=== PATIENT | female | born 1955 | race Two or more races ===

== ENCOUNTER 2018-05-20 08:45 | Day surgery (SDC) | payer MEDICAID ==
[~2018-05-20] VITALS: Ht 162.6 cm; Wt 77.6 kg
[2018-05-20] VITALS (13 sets, daily range): BP systolic 98–141; BP diastolic 52–71
[2018-05-20] MEDS ORDERED: normal saline 1000ml 1,000 ML IV PRN (09:10)
[2018-05-20 09:55] LABS: BASOPHILS % (AUTO) 0.9 % (0-1); EOSINOPHILS # (AUTO) 0.5 X10'3 (0-0.9); EOSINOPHILS % (AUTO) 17.6 % (0-6); HEMATOCRIT 42.4 % (35.0-45.0); HEMOGLOBIN 14.6 g/dl (12.0-16.0); LYMPHOCYTES % (AUTO) 33.6 % (21-51); MEAN CORPUSCULAR HEMOGLOBIN 30.5 PG (27.0-31.0); MEAN CORPUSCULAR HGB CONC 34.4 % (33.0-36.5); MEAN CORPUSCULAR VOLUME 88.8 FL (78-98); MEAN PLATELET VOLUME 9.2 FL (7.4-10.4); MONOCYTES # (AUTO) 0.2 X10'3 (0-0.9); MONOCYTES % (AUTO) 7.3 % (2-12); NEUTROPHILS # (AUTO) 1.2 X10'3 (1.8-7.7); NEUTROPHILS % (AUTO) 40.6 % (42-75); PLATELET COUNT 86 X10'3 (140-440); RED BLOOD COUNT 4.77 X10'6 (4.20-5.60); RED CELL DISTRIBUTION WIDTH 13.8 % (11.5-14.5); WHITE BLOOD COUNT 2.9 X10'3 (4.5-11.0)
[2018-05-20 10:03] LABS: INR 1.2 INR; PROTHROMBIN TIME 12.7 SECONDS (9.0-12.0)
[2018-05-20] MEDS ORDERED: midazolam 2 mg/2 ml injection IV ONE (10:05)
[2018-05-20] MEDS ORDERED: fentaNYL/PF 50MCG/1 ML 2ML syringe IV ONE (10:05)
[2018-05-20 10:12] LABS: ALANINE AMINOTRANSFERASE 67 U/L (12-78); ALBUMIN 3.6 G/DL (3.4-5.0); ALBUMIN/GLOBULIN RATIO 0.7 (1.1-1.5); ALKALINE PHOSPHATASE 212 IU/L (46-116); ANION GAP 11 (8-16); ASPARTATE AMINO TRANSFERASE 71 U/L (10-37); BLOOD UREA NITROGEN 10 MG/DL (7-18); BUN/CREATININE RATIO 16.4 (6.6-38.0); CALCIUM 9.1 MG/DL (8.5-10.1); CHLORIDE 107 MMOL/L (99-107); CREATININE 0.61 MG/DL (0.40-0.90); GLUCOSE 102 MG/DL (70-104); POTASSIUM 3.8 MMOL/L (3.5-5.1); SODIUM 142 MMOL/L (135-145); TOTAL CARBON DIOXIDE 24.5 MMOL/L (24-32); TOTAL PROTEIN 8.9 G/DL (6.4-8.2); eGFR > 90 ML/MIN
[2018-05-20 10:25] LABS: TOTAL CELLS COUNTED 100
[2018-05-20 10:26] LABS: PLATELET ESTIMATE DECREASED
[2018-05-20] MEDS ORDERED: ASPI-1265 PO (10:28)
[2018-05-20] MEDS ORDERED: IPRA3AMP IH (10:28)
[2018-05-20] MEDS ORDERED: ADV50100 IH (10:28)
[2018-05-20] MEDS ORDERED: ALBU18HF2 INH (10:28)
[2018-05-20] MEDS ORDERED: LEVO25TA2 PO (10:28)
[2018-05-20] MEDS ORDERED: normal saline 1000ml 1,000 ML IV SCH (12:16)
== END 2018-05-20 14:15 | disposition home or self-care (01) ==
LOC: SSTAY O 08:45
PROVIDERS: ATTEND Radiology Diagnostic Radiology
DX: K74.69 Other cirrhosis of liver (principal); K76.0 Fatty (change of) liver, not elsewhere classified; J44.9 Chronic obstructive pulmonary disease, unspecified; E03.9 Hypothyroidism, unspecified; K21.9 Gastro-esophageal reflux disease without esophagitis; Z79.2 Long term (current) use of antibiotics; Z79.82 Long term (current) use of aspirin; Z79.899 Other long term (current) drug therapy; Z88.8 Allergy status to other drugs, medicaments and biological substances
CPT/HCPCS: 36415; 47000; 76942; 80053; 85025; 85610; J2250; J3010; J7030; A4620

== ENCOUNTER 2018-09-11 09:00 | Day surgery (SDC) | payer MEDICAID ==
[~2018-09-11] VITALS: Ht 162.6 cm; Wt 158.0 kg
[~2018-09-11 09:00] MED LIST: ADV50100 IH; ALBU18HF2 INH; ASPI-1265 PO; IPRA3AMP31 IH; LEVO25TA2 PO
[2018-09-11] MEDS ORDERED: ASCO-407 (10:14)
[2018-09-11] MEDS ORDERED: MIDAZolam 5mg/5ml vial ONE ×2 (10:23)
[2018-09-11] MEDS ORDERED: LIDOcaine Viscous 15ml cup ONE (10:23)
[2018-09-11] MEDS ORDERED: fentaNYL/PF 50MCG/1 ML 2ML syringe ONE (10:23)
[2018-09-11 10:35] VITALS: BP 127/72
[2018-09-11 12:01] VITALS: BP 148/78
[2018-09-11 12:11] VITALS: BP 132/72
[2018-09-11 12:21] VITALS: BP 134/73
[2018-09-11 12:31] VITALS: BP 136/63
== END 2018-09-11 12:40 | disposition home or self-care (01) ==
LOC: GI LAB 09:00
PROVIDERS: ATTEND Internal Medicine Gastroenterology
DX: Z12.11 Encounter for screening for malignant neoplasm of colon (principal); I85.00 Esophageal varices without bleeding; K76.6 Portal hypertension; K31.89 Other diseases of stomach and duodenum; J45.998 Other asthma; K21.9 Gastro-esophageal reflux disease without esophagitis; Z86.2 Personal history of diseases of the blood and blood-forming organs and certain disorders involving the immune mechanism; Z79.899 Other long term (current) drug therapy; Z88.8 Allergy status to other drugs, medicaments and biological substances
CPT/HCPCS: 43244; 45378; 99152; 99153; J2250; J3010; J7030; 43450; A4620

== ENCOUNTER 2023-04-27 06:54 | Day surgery (SDC) | payer MEDICARE, MEDICAID ==
[2023-04-27] VITALS (11 sets, daily range): BP systolic 93–114; BP diastolic 55–76
[~2023-04-27] VITALS: Ht 162.6 cm; Wt 70.1 kg
[~2023-04-27 06:54] MED LIST changes: -ADV50100 IH; -ASPI-1265 PO; -IPRA3AMP31 IH; -LEVO25TA2 PO
[2023-04-27] MEDS ORDERED: normal saline 1000ml 1,000 ML IV PRN (07:20)
[2023-04-27] MEDS ORDERED: albumin 25% 100mL bottle x 1 IV PRN (07:20)
[2023-04-27] MEDS ORDERED: LIDOcaine 1%/PF 5ML 10 MG/ML VIAL SQ ONE (07:30)
[2023-04-27] MEDS ORDERED: FURO40TA4 PO (07:31)
[2023-04-27] MEDS ORDERED: SPIR100T5 PO (07:31)
== END 2023-04-27 11:15 | disposition home or self-care (01) ==
LOC: SSTAY O 06:54
PROVIDERS: ATTEND Radiology Vascular & Interventional Radiology
DX: R18.8 Other ascites (principal); R14.0 Abdominal distension (gaseous); K74.69 Other cirrhosis of liver; J44.9 Chronic obstructive pulmonary disease, unspecified; E03.9 Hypothyroidism, unspecified; Z88.1 Allergy status to other antibiotic agents; Z88.8 Allergy status to other drugs, medicaments and biological substances; Z79.899 Other long term (current) drug therapy
CPT/HCPCS: 49083; J3490; P9047; A6258; A6449

== ENCOUNTER 2023-07-10 06:42 | Day surgery (SDC) | payer MEDICARE, MEDICAID ==
[2023-07-10] VITALS (11 sets, daily range): BP systolic 93–116; BP diastolic 53–71; PULSE 63–68; RESP 16–18; TEMP 97.9; O2SAT 98–100
[~2023-07-10] VITALS: Ht 162.6 cm; Wt 68.5 kg
[~2023-07-10 06:42] MED LIST changes: -ALBU18HF2 INH; +FURO40TA4 PO; +SPIR100T5 PO
[2023-07-10] MEDS ORDERED: SPIR50TA5 PO (07:11)
[2023-07-10] MEDS ORDERED: normal saline 1000ml 1,000 ML IV PRN (07:20)
[2023-07-10] MEDS: albumin 25% 100mL bottle x 1 IV PRN ×2 (08:42→09:18)
== END 2023-07-10 10:30 | disposition home or self-care (01) ==
LOC: SSTAY O 06:42
PROVIDERS: ATTEND Radiology Vascular & Interventional Radiology
DX: R18.8 Other ascites (principal); R14.0 Abdominal distension (gaseous); J44.9 Chronic obstructive pulmonary disease, unspecified; E03.9 Hypothyroidism, unspecified; K74.69 Other cirrhosis of liver; Z88.1 Allergy status to other antibiotic agents; Z88.8 Allergy status to other drugs, medicaments and biological substances; Z79.899 Other long term (current) drug therapy
CPT/HCPCS: 49083; C1729; J3490; P9047; A6258

== ENCOUNTER 2023-07-27 07:32 | Day surgery (SDC) | payer MEDICARE, MEDICAID ==
[~2023-07-27] VITALS: Ht 162.6 cm; Wt 70.0 kg
[2023-07-27] VITALS (9 sets, daily range): BP systolic 88–124; BP diastolic 47–70; PULSE 57–67; RESP 14–16; TEMP 97.4; O2SAT 97–100
[~2023-07-27 07:32] MED LIST changes: -SPIR100T5 PO; +SPIR50TA5 PO
[2023-07-27] MEDS: albumin 25% 100mL bottle x 1 IV PRN ×3 (09:19→10:06)
== END 2023-07-27 10:45 | disposition home or self-care (01) ==
LOC: SSTAY O 07:32
PROVIDERS: ATTEND Radiology Diagnostic Radiology
DX: R18.8 Other ascites (principal); R14.0 Abdominal distension (gaseous); K74.69 Other cirrhosis of liver; J44.9 Chronic obstructive pulmonary disease, unspecified; E03.9 Hypothyroidism, unspecified; Z88.1 Allergy status to other antibiotic agents; Z88.8 Allergy status to other drugs, medicaments and biological substances; Z79.899 Other long term (current) drug therapy
CPT/HCPCS: 49083; C1729; J3490; P9047; A6258; A6449

== ENCOUNTER 2023-08-14 05:57 | Day surgery (SDC) | payer MEDICARE, MEDICAID ==
[2023-08-14] VITALS (8 sets, daily range): BP systolic 94–118; BP diastolic 53–66; PULSE 62–67; RESP 16; TEMP 97.7; O2SAT 98–99
[~2023-08-14] VITALS: Ht 162.6 cm; Wt 67.1 kg
[2023-08-14] MEDS ORDERED: normal saline 1000ml 1,000 ML IV PRN (06:30)
[2023-08-14] MEDS: albumin 25% 100mL bottle x 1 IV PRN ×2 (08:33→09:00)
== END 2023-08-14 09:55 | disposition home or self-care (01) ==
LOC: SSTAY O 05:57
PROVIDERS: ATTEND Radiology Diagnostic Radiology
DX: R18.8 Other ascites (principal); R14.0 Abdominal distension (gaseous); K74.69 Other cirrhosis of liver; J44.9 Chronic obstructive pulmonary disease, unspecified; E03.9 Hypothyroidism, unspecified; Z79.899 Other long term (current) drug therapy; Z98.890 Other specified postprocedural states; Z88.1 Allergy status to other antibiotic agents; Z88.8 Allergy status to other drugs, medicaments and biological substances
CPT/HCPCS: 49083; C1729; J3490; P9047; A6258; A6449

== ENCOUNTER 2023-11-30 07:58 | Day surgery (SDC) | payer MEDICARE, MEDICAID ==
[2023-11-30] VITALS (7 sets, daily range): BP systolic 108–130; BP diastolic 61–72; PULSE 65–68; RESP 16; TEMP 98.2; O2SAT 96–100
[~2023-11-30] VITALS: Ht 162.6 cm; Wt 60.6 kg
[2023-11-30] MEDS ORDERED: albumin 25% 100mL bottle x 1 IV PRN (08:25)
== END 2023-11-30 11:20 | disposition home or self-care (01) ==
LOC: SSTAY O 07:58
PROVIDERS: ATTEND Radiology Vascular & Interventional Radiology
DX: R18.8 Other ascites (principal); R14.0 Abdominal distension (gaseous); K74.69 Other cirrhosis of liver; J44.9 Chronic obstructive pulmonary disease, unspecified; E03.9 Hypothyroidism, unspecified; Z88.1 Allergy status to other antibiotic agents; Z88.8 Allergy status to other drugs, medicaments and biological substances; Z79.899 Other long term (current) drug therapy; Z98.890 Other specified postprocedural states
CPT/HCPCS: 49083; C1729; P9047; A6258; A6449